=== PATIENT | female | born 1990 | race Caucasian/White ===

== ENCOUNTER 2016-12-05 17:16 | Emergency (ER) | payer SELFPAY ==
[~2016-12-05] VITALS: Ht 157.5 cm; Wt 110.5 kg
[2016-12-05 17:18] VITALS: Ht 157.5 cm; Wt 110.5 kg
[2016-12-05] MEDS ORDERED: IBUP-1542 PO (19:38)
--- NOTE | 2016-12-05 19:40 | ERD ---
ER Documentation Chief Complaint Chief Complaint INJURED AT WORK FELL TWISTED ANKLE R ANKLE HPI 26-year-old female presents with right medial ankle pain after twisting injury she fell off of a ladder today. Patient's pain is achy, localized, worse with weightbearing better at rest. She states she took ibuprofen but it feels better now. ROS All systems reviewed and are negative except as per history of present illness. Medications Home Meds Active Scripts Ibuprofen* (Motrin*) 600 Mg Tab, 600 MG PO Q6, #30 TAB Prov:LASHELL RANDLE PA-C 12/05/16 PMhx/Soc History of Surgery: No Anesthesia Reaction: No Hx Respiratory Disorders: No Hx Cardiac Disorders: No Hx Psychiatric Problems: No Hx Alcohol Use: No Hx Substance Use: No Hx Tobacco Use: No Smoking Status: Never smoker Physical Exam Vitals Vital Signs Date Time Temp Pulse Resp B/P Pulse Ox O2 Delivery O2 Flow Rate FiO2 12/05/16 20:15 98.0 74 18 138/74 100 Room Air 12/05/16 17:18 98.0 72 18 145/76 100 Physical Exam General: Well-developed, well-nourished. The patient appears in no acute distress. HEENT: Head is normocephalic, atraumatic. No scleral icterus. Neck: Supple. Nontender. Lungs: Clear to auscultation. Normal air movement. Heart: Regular rate and rhythm. S1 and S2 are normal. No murmurs, gallops, or rubs. Abdomen: Nondistended. Extremities: Right medial swelling, no bony deformities, full range of motion with flexion dorsiflexion, pulses 2+ bilaterally, compartments are soft, Achilles is intact. Neurologic: Alert and oriented 3. No focal deficits. Normal speech and gait. Skin: Normal turgor. No rash or lesions. Results 24 hrs DIAGNOSTIC IMAGING REPORT Patient: HECTOR DAMIAN : 1990 Age: 26 Sex: F MR #: [id number] DOS: 12/05/161809 Ordering MD: LASHELL RANDLE PA-C Location: [facility] Room/Bed: PROCEDURE: XR Ankle Right 3 View (Routine CLINICAL INDICATION: medial ankle pain from twisting TECHNIQUE: Right ankle series provided for evaluation. COMPARISON: None FINDINGS: No acute fracture nor dislocation. No suspicious osseous lesions. The talar dome is intact. No significant arthritic change. An arrow points to the medial malleolus of the right ankle. IMPRESSION: No acute fracture nor dislocation involving the right ankle. Rene Mckeon Physician Date Time Electronically viewed and signed by Rene Mckeon Physician on 12/05/2016 20 :20 ML/ CC: LASHELL RANDLE PA-C Procedures/MDM ED course: Patient's right ankle was wrapped in Markell bandage. Splint Assessment: Neurovascularly intact post splint placement with good fit. 26-year-old female presents with a twisting injury is complaining of right medial ankle pain, most consistent with an ankle sprain. No evidence of fracture, dislocation, she is neurovascular intact and stable for discharge. Departure Diagnosis: Primary Impression: Fall Additional Impression: Ankle sprain Condition: Good Patient Instructions: Treating Ankle Sprains LASHELL RANDLE PA-C Dec 05, 2016 19:40
[2016-12-05 20:15] VITALS: BP 138/74; PULSE 74; RESP 18; TEMP 98
--- NOTE | 2016-12-05 20:20 | RADRPT ---
PROCEDURE: XR Ankle Right 3 View (Routine CLINICAL INDICATION: medial ankle pain from twisting TECHNIQUE: Right ankle series provided for evaluation. COMPARISON: None FINDINGS: No acute fracture nor dislocation. No suspicious osseous lesions. The talar dome is intact. No signi ficant arthritic change. An arrow points to the medial malleolus of the right ankle. IMPRESSION: No acute fracture nor dislocation involving the right ankle. Rene Mckeon Physician Date Time Electronically viewed and signed by Rene Mckeon Physician on 12/05/2016 20:20 ML/
== END 2016-12-05 19:43 | disposition home or self-care (01) ==
LOC: FTE 17:16
DX: S93.401A Sprain of unspecified ligament of right ankle, initial encounter (principal); W11.XXXA Fall on and from ladder, initial encounter; Y92.9 Unspecified place or not applicable